=== PATIENT | male | born 1980 | race Two or more races ===

== ENCOUNTER 2020-07-14 04:53 | Emergency (ER) | payer OTHER ==
[~2020-07-14] VITALS: Ht 175.3 cm; Wt 79.5 kg
[2020-07-14] MEDS: KETOROLAC TROMETHAMINE 30 MG/ML VIAL IM ONE (06:25)
[2020-07-14 06:36] VITALS: BP 122/80
== END 2020-07-14 06:37 | disposition home or self-care (01) ==
LOC: EMS 04:54
DX: S93.401A Sprain of unspecified ligament of right ankle, initial encounter (principal); M25.561 Pain in right knee; X58.XXXA Exposure to other specified factors, initial encounter; Y93.89 Activity, other specified; Y92.89 Other specified places as the place of occurrence of the external cause; Y99.8 Other external cause status
CPT/HCPCS: 29515; 73562; 73610; 73630; 96372; 99284; J1885